=== PATIENT | male | born 1960 | race Caucasian/White ===

== ENCOUNTER 2018-10-17 18:41 | Emergency (ER) | payer SELFPAY ==
[~2018-10-17] VITALS: Ht 185.4 cm; Wt 102.1 kg
--- OUTSIDE RECORDS SUMMARY | 2018-10-17 18:44 | XMS REPORT | Summary of Care ---
Author Author STEPHEN Love, GONZALEZ Organization Unknown Address Unknown Phone Unavailable Care Team Providers Care [employer] Name Role Phone DERRICK Love, NERI Unavailable Unavailable STEPHEN Love, GONZALEZ Unavailable Unavailable SALINA Love, NIRALI Unavailable Unavailable HARRIETT Love, ABBY Unavailable Unavailable Stephen MARQUEZ, Gonzalez Unavailable Unavailable Harriett MARQUEZ, Abby Unavailable Unavailable MARCELLO MARQUEZ SC, REYNA Mcintyre Unavailable Unavailable Miguel Angel MARQUEZ, Nik Unavailable Unavailable Unavailable Unavailable Functional Status Name Dates Details Functional status health issues are not documented Status: Name Dates Details Cognitive status health issues are not documented Status: Problems Name Dates Details Dermatophytosis of nail (110.1, B35.1) Status: Active Leukopenia (288.50, D72.819) Status: Active 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, R76.0) Status: Active Screening for colon cancer (V76.51, Z12.11) Status: Active Chronic fatigue (780.79, R53.82) Status: Active Post-traumatic osteoarthritis of right knee (715.26, M17.31) Status: Active Colitis, 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, 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 Chronic diarrhea (787.91, K52.9) Status: Active Chronic heartburn (787.1, R12) Status: Active Irritable bowel syndrome with diarrhea (564.1, K58.0) Status: Active Internal hemorrhoid (455.0, K64.8) Status: Active Methotrexate, terminal block assembler, current use (V58.69, Z79.899) Status: Active Erectile dysfunction (607.84, N52.9) Status: Active Benign prostatic hyperplasia with lower urinary tract symptoms (600.01, N40.1) Status: Active Lobo's esophagus (530.85, K22.70) Status: Active Rheumatoid arthritis of multiple sites without organ or system involvement with positive rheumatoid factor (714.0, M05.79) Status: Active Encounter for monitoring rituximab therapy (V58.83, Z51.81) Status: Active Attention and concentration deficit (799.51, R41.840) Status: Active 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, 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) Status: Active Behavioral change (312.9, R46.89) Status: Active 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, 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 Memory loss (780.93, R41.3) Status: Active Obstructive sleep apnea (327.23, G47.33) Status: Active Medications Name Dates Details Folic Acid 1 MG Oral Tablet TAKE 1 TABLET BY MOUTH EVERY DAY Quantity: 90 MITCHELL M.D., GONZALEZ * Start : 07-Jul-2017 Active Meloxicam 15 MG Oral Tablet TAKE 1 TABLET DAILY * Quantity: 90 Refills: 1 MITCHELL M.D., GONZALEZ * Start : 22-Jul-2017 Active TraMADol HCl ER 300 MG Oral Tablet Extended Release 24 Hour TAKE 1 TABLET BY MOUTH EVERY DAY * Quantity: 90 Refills: 1 MITCHELL M.D., GONZALEZ * Start : 20-Aug-2014 Active Divalproex Sodium ER 250 MG Oral Tablet Extended Release 24 Hour TAKE 2 TABLET DAILY * Quantity: 180 Refills: 3 NIRALI DOWNING M.D. Active Modafinil 100 MG Oral Tablet TAKE 1 TABLET BY MOUTH EVERY MORNING TAKE 1 TABLET BY MOUTH AT NOON * Quantity: 180 Refills: 0 NIRALI DOWNING M.D. * Start : 07-Nov-2015 Active BD Insulin Syringe 27G X 1/2" 1 ML USE DIRECTED. * Quantity: 15 Refills: 3 STEPHEN M.DGONZALEZ Johnson * Start : 27-Aug-2015 Active Methotrexate Sodium (PF) 250 MG/10ML Injection Solution INJECT 0.8 ML SUBCUTANEOUSLY WEEKLY * Quantity: 10 Refills: 0 STEPHEN M.DGONZALEZ Johnson * Start : 28-Nov-2017 Active Rituxan 500 MG/50ML Intravenous Solution 1000 mg IVPB day 0 and day 15 * Quantity: 2 Refills: 0 STEPHEN M.DGONZALEZ Johnson * Start : 22-Oct-2015 Active 50 ML Vial Sertraline HCl - 100 MG Oral Tablet TAKE 1 TABLET DAILY. * Quantity: 90 Refills: 1 NIRALI DOWNING M.D. * Start : 30-Apr-2016 Active Restasis 0.05 % Ophthalmic Emulsion INSTILL 1 DROP IN BOTH EYES EVERY 12 HOURS DAILY. * Refills: 0 * Start : 07-Jul-2016 Active Pennsaid 2 % Transdermal Solution Apply topically, 2 pumps to knee 1-2x a day PRN * Quantity: 1 Refills: 4 GONZALEZ MITCHELL M.D. * Start : 23-Aug-2016 Active 112 GM Pump Btl Xifaxan 550 MG Oral Tablet Take 1 tablet PO TID x 14 days * Quantity: 42 Refills: 0 ABBY LORENZANA M.D. * Start : 01-Oct-2016 Active Tamsulosin HCl - 0.4 MG Oral Capsule take 1 tablet po daily * Quantity: 90 Refills: 0 HARRIETT Love, ABBY * Start : 20-Oct-2016 Active Lidocaine 5 % External Ointment Apply pea-sized amount to anus BID x 1 month * Quantity: 30 Refills: 0 HARRIETT Love, ABBY * Start : 20-Oct-2016 Active Esomeprazole Magnesium 40 MG Oral Capsule Delayed Release TAKE 1 CAPSULE DAILY * Quantity: 90 Refills: 1 ABBY LORENZANA M.D. * Start : 17-May-2017 Active Sildenafil Citrate 100 MG Oral Tablet TAKE DIRECTED. * Quantity: 10 Refills: 3 NERI MEZA M.D. 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 History of rheumatoid arthritis (V13.4, Z87.39) Status: Resolved History of Silent sinus syndrome (478.19, J34.89) Status: Resolved History of stroke (V12.54, Z86.73) Status: Resolved 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, 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) Status: Resolved Procedures Procedure Dates Details History of Nose Surgery Completed History of Appendectomy Completed History of Eye Surgery Completed History of Eyelid Excision And Repair Completed Immunization Name Dates Details Immunizations not documented Family History Name Dates Details Family history of cardiac disorder (V17.49, Z82.49) Comments: Family History Status: Active Name Dates Details Family history of (798.2, R99) Status: Active Name Dates Details Family history of (798.2, R99) Status: Active Name Dates Details Family history of (798.2, R99) Status: Active Name Dates Details Family history of (798.2, R99) Status: Active Name Dates Details Family history of (798.2, R99) Status: Active Name Dates Details Family history of (798.2, R99) Status: Active Social History Name Dates Details - Status: Name Dates Details Never smoker Vital Signs Date Test Result Details No Known Vitals to report Results Date Description Value Details Results not documented Plan of Care Name Dates Details Planned Observations Planned Goals not documented Planned Encounters Appointment; NIRALI DOWNING M.D. On: 31-Jan-2018 11:00 Interventions Provided Medication Changes* Rituxan 500 MG/50ML Intravenous Solution - Renew Instructions Name Dates Details Instructions not documented Encounters Appointment; INFUSION, TREATMENT Encounter Diagnosis: Problem not documented On: 12-Dec-2015 11:00 Appointment; REYNA ARMENDARIZ Encounter Diagnosis: Problem not documented On: 25-Dec-2015 15:00 Appointment; INFUSION, TREATMENT Encounter Diagnosis: Problem not documented On: 26-Dec-2015 11:00 Appointment; RUBY NOVOA M.D. Encounter Diagnosis: Problem not documented On: 07-Jan-2016 15:00 Appointment; REYNA ARMENDARIZ Encounter Diagnosis: Problem not documented On: 09-Jan-2016 13:00 Appointment; CHOLO REYES Encounter Diagnosis: Problem not documented On: 16-Jan-2016 10:45 Appointment; REYNA ARMENDARIZ Encounter Diagnosis: Problem not documented On: 16-Jan-2016 15:15 Appointment; GONZALEZ MITCHELL M.D. Encounter Diagnosis: Problem not documented On: 21-Jan-2016 14:30 Appointment; REYNA ARMENDARIZ Encounter Diagnosis: Problem not documented On: 06-Feb-2016 16:00 Appointment; NIRALI DOWNING M.D. Encounter Diagnosis: Problem not documented On: 30-Apr-2016 8:00 Appointment; REYNA ARMENDARIZ Encounter Diagnosis: Problem not documented On: 14-May-2016 16:00 Appointment; GONZALEZ MITCHELL M.D. Encounter Diagnosis: Problem not documented On: 02-Jun-2016 14:30 Appointment; NIRALI DOWNING M.D. Encounter Diagnosis: Problem not documented On: 09-Jun-2016 12:00 Appointment; GONZALEZ MITCHELL M.D. Encounter Diagnosis: Problem not documented On: 11-Jun-2016 15:30 Appointment; REYNA ARMENDARIZ Encounter Diagnosis: Problem not documented On: 11-Jun-2016 16:30 Appointment; GONZALEZ MITCHELL M.D. Encounter Diagnosis: Problem not documented On: 14-Jun-2016 14:00 Appointment; VIVIANA CORBETT M.D. Encounter Diagnosis: Problem not documented On: 15-Jun-2016 11:00 Appointment; NIRALI DOWNING M.D. Encounter Diagnosis: Problem not documented On: 02-Jul-2016 9:00 Appointment; INFUSION, TREATMENT Encounter Diagnosis: Problem not documented On: 02-Jul-2016 11:00 Appointment; ABBY LORENZANA M.D. Encounter Diagnosis: Problem not documented On: 07-Jul-2016 9:00 Appointment; Darcy Chong M.D. Encounter Diagnosis: Problem not documented On: 16-Jul-2016 9:15 Appointment; INFUSION, TREATMENT Encounter Diagnosis: Problem not documented On: 16-Jul-2016 11:00 Appointment; REYNA ARMENDARIZ Encounter Diagnosis: Problem not documented On: 07-Sep-2016 10:00 Appointment; NERI MEZA M.D. Encounter Diagnosis: Problem not documented On: 17-Sep-2016 8:00 Appointment; ABBY LORENZANA M.D. Encounter Diagnosis: Problem not documented On: 17-Sep-2016 9:30 Appointment; ABBY LORENZANA M.D. Encounter Diagnosis: Problem not documented On: 01-Oct-2016 13:00 Appointment; ABBY LORENZANA M.D. Encounter Diagnosis: Problem not documented On: 20-Oct-2016 9:00 Appointment; NIRALI DOWNING M.D. Encounter Diagnosis: Problem not documented On: 22-Oct-2016 10:00 Appointment; GONZALEZ MITCHELL M.D. Encounter Diagnosis: Problem not documented On: 01-Dec-2016 10:00 Appointment; INFUSION, TREATMENT Encounter Diagnosis: Problem not documented On: 17-Dec-2016 11:00 Appointment; GONZALEZ MITCHELL M.D. Encounter Diagnosis: Problem not documented On: 17-Dec-2016 12:30 Appointment; NERI MEZA M.D. Encounter Diagnosis: Problem not documented On: 25-Dec-2016 9:00 Appointment; INFUSION, TREATMENT Encounter Diagnosis: Problem not documented On: 31-Dec-2016 11:00 Appointment; NERI MEZA M.D. Encounter Diagnosis: Problem not documented On: 21-Jan-2017 12:00 Appointment; NIK THAO M.D. Encounter Diagnosis: Problem not documented On: 21-Mar-2017 16:00 Appointment; NIRALI DOWNING M.D. Encounter Diagnosis: Problem not documented On: 05-May-2017 9:00 Appointment; CATHLEEN IYER NP Encounter Diagnosis: Problem not documented On: 20-May-2017 8:30 Appointment; NERI MEZA M.D. Encounter Diagnosis: Problem not documented On: 11-Jun-2017 9:00 Appointment; INFUSION, TREATMENT Encounter Diagnosis: Problem not documented On: 01-Jul-2017 11:00 Appointment; GONZALEZ MITCHELL M.D. Encounter Diagnosis: Problem not documented On: 01-Jul-2017 11:30 Appointment; INFUSION, TREATMENT Encounter Diagnosis: Problem not documented On: 15-Jul-2017 11:00 Appointment; NIK THAO M.D. Encounter Diagnosis: Problem not documented On: 10-Aug-2017 11:00 Appointment; NIRALI DOWNING M.D. Encounter Diagnosis: Problem not documented On: 22-Aug-2017 12:00
[2018-10-17 20:11] LABS: BASOPHILS % 0.8 % (0.0-1.0); EOSINOPHILS # (AUTO) 0.1 (0.0-0.4); EOSINOPHILS % 2.2 % (0.0-6.0); HEMATOCRIT 40.9 % (38.2-49.6); HEMOGLOBIN 13.2 g/dL (14.0-18.0); LYMPHOCYTES # (AUTO) 0.7 (1.0-3.2); LYMPHOCYTES % 14.5 % (18.0-39.1); MEAN CORPUSCULAR HEMOGLOBIN 30.4 pg (28-32); MEAN CORPUSCULAR HGB CONC 32.3 g/dL (31-35); MEAN CORPUSCULAR VOLUME 94.2 fL (81-99); MONOCYTES # (AUTO) 0.6 (0.2-0.8); MONOCYTES % 12.2 % (4.4-11.3); NEUTROPHILS # (AUTO) 3.4 (2.1-6.9); NEUTROPHILS % 69.9 % (38.7-80.0); PLATELET COUNT 252 x10e3/uL (140-360); RED BLOOD COUNT 4.34 x10e6/uL (4.3-5.7); RED CELL DISTRIBUTION WIDTH 13.1 % (11.7-14.4)
[2018-10-17 20:22] LABS: INR 0.84; PROTHROMBIN TIME 12.3 seconds (11.9-14.5)
[2018-10-17 20:33] LABS: ALANINE AMINOTRANSFERASE 20 IU/L (0-55); ALBUMIN 3.7 g/dL (3.5-5.0); ALBUMIN/GLOBULIN RATIO 1.4 (0.8-2.0); ALKALINE PHOSPHATASE 62 IU/L (40-150); ANION GAP 14.4 mmol/L (8-16); BLOOD UREA NITROGEN 15 mg/dL (7-26); BUN/CREATININE RATIO 18 (6-25); CARBON DIOXIDE 26 mmol/L (22-29); CHLORIDE 100 mmol/L (98-107); CREATININE, SERUM 0.82 mg/dL (0.72-1.25); EST GLOMERULAR FILTRATION RATE > 60 ML/MIN (60-); GLUCOSE 84 mg/dL (74-118); POTASSIUM 3.4 mmol/L (3.5-5.1); SODIUM 137 mmol/L (136-145)
[2018-10-17 20:59] VITALS: BP 129/79
== END 2018-10-17 21:30 | disposition home or self-care (01) ==
LOC: ER 18:41
DX: M79.662 Pain in left lower leg (principal); S86.112A Strain of other muscle(s) and tendon(s) of posterior muscle group at lower leg level, left leg, initial encounter; F03.90 Unspecified dementia, unspecified severity, without behavioral disturbance, psychotic disturbance, mood disturbance, and anxiety; M06.9 Rheumatoid arthritis, unspecified; E05.00 Thyrotoxicosis with diffuse goiter without thyrotoxic crisis or storm
CPT/HCPCS: 36415; 80053; 85025; 85610; 85730; 93971; 99284